=== PATIENT | female | born 1980 | race Caucasian/White ===

== ENCOUNTER 2021-03-30 20:23 | Emergency (ER) | payer MEDICAID ==
[~2021-03-30] VITALS: Ht 162.6 cm; Wt 55.0 kg
[~2021-03-30 20:23] MED LIST: ASPI-691 PO; HYDR1TAB13; IBUP-1221; LORA10TA72; OXYC-380 PO; PSEU30TA17
--- NOTE | 2021-03-30 22:28 | NUR ---
pt d/c with d/c summary and ice pack and is able to demonstrate correct use of crutches prior to d/c. pt verbalizes understanding of ortho care instructions and f/u. pt denies any other needs pertaining to this visit and ambulates with crutches to registration desk for ride home with family.
[2021-03-30 22:31] VITALS: BP 132/77
== END 2021-03-30 22:33 | disposition home or self-care (01) ==
LOC: ED 22:26
DX: S93.602A Unspecified sprain of left foot, initial encounter (principal); S90.32XA Contusion of left foot, initial encounter; G43.909 Migraine, unspecified, not intractable, without status migrainosus; G89.29 Other chronic pain; W22.8XXA Striking against or struck by other objects, initial encounter; Y93.89 Activity, other specified; Y92.009 Unspecified place in unspecified non-institutional (private) residence as the place of occurrence of the external cause; Y99.8 Other external cause status
CPT/HCPCS: 29515; 99283